=== PATIENT | female | born 1950 ===

== ENCOUNTER 2024-11-29 06:27 | Day surgery (SDC) | payer MEDICARE, OTHER, SELFPAY | END 2024-11-29 10:58 | disposition home or self-care (01) | LOC: GI 06:27 | PROVIDERS: ATTENDING PHYSICIAN Internal Medicine | DX: Z12.11 Encounter for screening for malignant neoplasm of colon (principal); K64.9 Unspecified hemorrhoids; K57.30 Diverticulosis of large intestine without perforation or abscess without bleeding | CPT/HCPCS: G0121 ==